=== PATIENT | male | born 1990 | race Caucasian/White ===

== ENCOUNTER → 2018-10-31 | Outpatient (REF) | payer OTHER ==
[2018-11-05 08:14] LABS: HEPATITIS C VIRUS GENOTYPE 1a (.)
== END ==
LOC: M SFHCPLAZ 09:31
PROVIDERS: ATTEND Internal Medicine Infectious Disease
DX: B18.2 Chronic viral hepatitis C (principal)
CPT/HCPCS: 36415; 81596; 87902; G0463

== ENCOUNTER → 2018-11-27 | Outpatient (REF) | payer OTHER ==
[2018-11-27 13:26] LABS: ALBUMIN 4.3 GM/DL (3.2-5.2); BILIRUBIN,DIRECT 0.1 MG/DL (0.0-0.2); BILIRUBIN,TOTAL 0.6 MG/DL (0.2-1.0); TOTAL PROTEIN 8.1 GM/DL (6.4-8.2)
[2018-12-01 14:17] LABS: HEPATITIS C QUANTITATION HCV Not Detected IU/mL (.)
== END ==
LOC: M SFHCPLAZ 09:15
PROVIDERS: ATTEND Internal Medicine Infectious Disease
DX: B18.2 Chronic viral hepatitis C (principal)

== ENCOUNTER → 2019-01-08 | Outpatient (CLI) | payer OTHER ==
[2019-01-08 16:53] LABS: BASO # 0.1 10^3/uL (0.0-0.2); BASO % 0.8 % (0.0-1.0); EOS # 0.2 10^3/uL (0.0-0.5); EOS % 2.2 % (0.0-3.0); HEMATOCRIT 43.8 % (42.0-52.0); LYMPH # 3.2 10^3/uL (1.5-5.0); LYMPH % 34.4 % (24.0-44.0); MEAN CORPUSCULAR HEMOGLOBIN 32.4 pg (27.0-33.0); MEAN CORPUSCULAR HGB CONC 36.5 g/dl (32.0-36.5); MEAN CORPUSCULAR VOLUME 88.7 fl (80.0-96.0); MONO # 1.1 10^3/uL (0.0-0.8); NEUTROPHILS # 4.6 10^3/uL (1.5-8.5); NEUTROPHILS % 50.1 % (36.0-66.0); PLATELET COUNT, AUTOMATED 262 10^3/uL (150-450); RED BLOOD COUNT 4.94 10^6/uL (4.30-6.10); WHITE BLOOD COUNT 9.2 10^3/uL (4.0-10.0)
[2019-01-08 17:17] LABS: BLOOD UREA NITROGEN 16 MG/DL (7-18); CARBON DIOXIDE LEVEL 31 MEQ/L (21-32); CHLORIDE LEVEL 101 MEQ/L (98-107); CREATININE FOR GFR 0.98 MG/DL (0.70-1.30); GLOMERULAR FILTRATION RATE > 60.0 (>60); GLUCOSE, FASTING 86 MG/DL (70-100); POTASSIUM SERUM 3.9 MEQ/L (3.5-5.1); SODIUM LEVEL 140 MEQ/L (136-145)
== END ==
LOC: M LAB 16:24
PROVIDERS: ATTEND Podiatrist
DX: Z01.818 Encounter for other preprocedural examination (principal); M25.571 Pain in right ankle and joints of right foot

== ENCOUNTER 2019-01-19 11:03 | Day surgery (SDC) | payer OTHER ==
[~2019-01-19] VITALS: Ht 182.9 cm; Wt 97.1 kg
[~2019-01-19 11:03] MED LIST: LR 1,000 ML IV ONE; ceFAZolin SOD 2 GM in IV 1 EA IV ONE
[2019-01-19] MEDS ORDERED: PROPOFOL 200 MG/20 ML VIAL As Ordered ONE ×4 (11:29→14:18)
[2019-01-19] MEDS ORDERED: LIDOCAINE 2% INJ 100 MG/5 ML SDV (FOR ANES.) As Ordered ONE (11:31)
[2019-01-19] MEDS ORDERED: ONDANSETRON 4MG/2ML VIAL (J2405) As Ordered ONE (11:31)
[2019-01-19] MEDS ORDERED: dexameTHASONE 4 MG/ML 1ML VIAL (J1100) As Ordered ONE ×2 (11:32→12:56)
[2019-01-19] MEDS ORDERED: KETOROLAC 60 MG/2 ML VIAL (J1885) As Ordered ONE (11:32)
[2019-01-19] MEDS ORDERED: MIDAZOLAM INJ 2 MG/2 ML VIAL (J2250) As Ordered ONE (11:34)
[2019-01-19] MEDS ORDERED: fentaNYL 100 MCG/2 ML INJECTION (J3010) As Ordered ONE (11:35)
[2019-01-19] MEDS ORDERED: CHLOROPROCAINE 2 % INJ PRES.FREE 20 ML VIAL (J2400) As Ordered ONE (12:46)
[2019-01-19] MEDS ORDERED: BACITRACIN PWD 50,000 UNITS VIAL As Ordered ONE (12:56)
[2019-01-19] MEDS ORDERED: LIDOCAINE 2% MDV 20 ML VIAL As Ordered ONE (12:56)
[2019-01-19] MEDS ORDERED: BUPIVACAINE HCL 0.5% 30 ML VIAL As Ordered ONE (12:56)
[2019-01-19] MEDS ORDERED: NEOSPORIN GU IRRIG 20 ML VIAL As Ordered ONE (12:56)
[2019-01-19] MEDS ORDERED: fentaNYL 100 MCG/2 ML INJECTION (J3010) IV PRN (15:15)
[2019-01-19] MEDS ORDERED: ONDANSETRON 4MG/2ML VIAL (J2405) IV PRN (15:15)
[2019-01-19] MEDS ORDERED: LR 1,000 ML IV SCH (15:15)
[2019-01-19] MEDS ORDERED: oxyCODONE 5MG TAB PO PRN (15:15)
[2019-01-19 16:07] VITALS: BP 138/71
--- NOTE | 2019-01-21 15:32 | RO ---
DATE OF PROCEDURE: 01/19/2019 PREPROCEDURE DIAGNOSIS: Lateral ankle instability, right ankle. POSTPROCEDURE DIAGNOSIS: Lateral ankle instability, right ankle. PROCEDURE: Brostrum-Cabrera lateral ankle stabilization, right ankle SURGEON: Dr. Enrique Tubbs DPM TRACK INSPECTING SUPERVISOR: None. ANESTHESIA: Spinal with sedation. HEMOSTASIS: Thigh pneumatic tourniquet at 300 mmHg, 59 minutes. DRAINS UTILIZED: None. IRRIGATION: Dilute bacitracin, neomycin and polymyxin B solution. DESCRIPTION OF PROCEDURE: On 01/19/2019, this 28-year-old white male was taken from his hospital room to the operating room and placed on the operating table in the left lateral decubitus position after the anesthesia was obtained. The patient's right lower extremity was prepped and draped in the usual aseptic manner. Thigh pneumatic tourniquet was rapidly inflated and the following procedure was preformed. Brostrum-Cabrera lateral ankle stabilization, right ankle. Attention was directed to the lateral aspect of the patient's right ankle where a J-shaped incision was placed starting anterior to the lateral malleolus, ending at the tip of the fibula. Dissection was carried down and all coursing venous tributaries were identified, underscored, clamped, cut, ligated and electrocoagulated as necessary. Dissection was carried down to the ankle capsule. The peroneal tendon sheath was opened and the peroneal tendons were inspected along the length of the incision. No defects were seen in the peroneal tendons and the tendons were retracted in an inferior direction. Dissection was carried down to the level of the calcaneal fibular ligament, which appeared to be somewhat thickened and elongated. This ligament was then transected in the midsubstance. Dissection was then carried to the anterior talofibular ligament, which was similarly identified and noted to be somewhat elongated. This was also transected in its midsubstance and utilizing #2 FiberWire with a [id number] closure, the ligaments were tightened. Attention was directed anterior where the inferior extensor retinaculum was identified and mobilized. Utilizing the Cabrera modification, two stitches of #2 FiberWire were then placed tacking the retinaculum to the lateral malleolar area. The wound was copiously lavaged with dilute bacitracin, neomycin and polymyxin B solution. Subcutaneous tissues were coapted and maintained with #3-0 Vicryl in a simple interrupted type fashion. The skin incision was coapted and maintained utilizing #4-0 Prolene in a simple interrupted and horizontal mattress type fashion. The ankle was held in an everted position throughout the repair. A dry sterile dressing was applied consisting of Adaptic, 4 x 4's and Kerlix. The thigh pneumatic tourniquet was rapidly deflated and a Dooley compressive dressing with an anterior splint was then applied with the foot and ankle in an everted position. The patient having apparently tolerated the surgical procedure well was taken from the operating room (OR) to the recovery room for further monitoring by the anesthesia department. MARSHA
== END 2019-01-19 16:10 | disposition home or self-care (01) ==
LOC: M SDC 11:03
PROVIDERS: ATTEND Podiatrist
DX: M25.571 Pain in right ankle and joints of right foot (principal); M25.371 Other instability, right ankle; F17.210 Nicotine dependence, cigarettes, uncomplicated
CPT/HCPCS: 27698; J0690; J1100; J1885; J2250; J2400; J2405; J3010

== ENCOUNTER → 2019-03-22 | Outpatient (REF) | payer OTHER ==
[2019-03-22 12:57] LABS: ALBUMIN 4.3 GM/DL (3.2-5.2); ALT/SGPT 35 U/L (12-78); BILIRUBIN,DIRECT < 0.1 MG/DL (0.0-0.2); BILIRUBIN,TOTAL 0.4 MG/DL (0.2-1.0)
[2019-03-26 14:56] LABS: HEPATITIS C QUANTITATION HCV Not Detected IU/mL (.)
== END ==
LOC: M SFHCPLAZ 09:58
PROVIDERS: ATTEND Internal Medicine Infectious Disease
DX: B18.2 Chronic viral hepatitis C (principal)
CPT/HCPCS: 36415; 80076; 87522; G0463

== ENCOUNTER → 2019-05-24 | Outpatient (REF) | payer OTHER ==
[2019-05-24 13:00] LABS: ALBUMIN 4.6 GM/DL (3.2-5.2); BILIRUBIN,DIRECT 0.1 MG/DL (0.0-0.2); BILIRUBIN,TOTAL 0.5 MG/DL (0.2-1.0); TOTAL PROTEIN 7.8 GM/DL (6.4-8.2)
[2019-05-28 14:07] LABS: HEPATITIS C QUANTITATION HCV Not Detected IU/mL (.)
== END ==
LOC: M SFHCPLAZ 10:01
PROVIDERS: ATTEND Internal Medicine Infectious Disease
DX: B18.2 Chronic viral hepatitis C (principal)
CPT/HCPCS: 36415; 80076; 87522; G0463